=== PATIENT | female | born 1995 | race Caucasian/White ===

== ENCOUNTER → 2016-06-17 | Outpatient (CLI) | payer OTHER ==
[~2016-06-17] MED LIST: CELEXA 20MG20 MG/TAB PO; IBU600 MG PO; PRENATAL1 TA1 PO; SENOKOT S 50 MG1 TAB PO
== END ==
LOC: COL.RAD 06-15 08:30
DX: Z31.41 Encounter for fertility testing (principal)
CPT/HCPCS: Q9967